=== PATIENT | female | born 1960 | race Caucasian/White ===

== ENCOUNTER 2022-03-14 10:14 | Day surgery (SDC) | payer BC ==
[2022-03-13 11:56] VITALS: BMI 30.4
[~2022-03-14 10:14] MED LIST: Bupivacaine PF 0.5% 30 ML VIAL ONE; EPINEPHrine 1 MG/ML AMP ONE
[2022-03-14] MEDS ORDERED: Fentanyl 100 MCG/2 ML VIAL ONE (11:38)
[2022-03-14] MEDS ORDERED: Ondansetron PF 4 MG/2 ML Vial ONE (11:38)
[2022-03-14] MEDS ORDERED: PROPOFOL 20 ML ONE ×2 (11:38→12:24)
[2022-03-14] MEDS ORDERED: CEFAZOLIN 2 GM VIAL ONE (11:51)
[2022-03-14] MEDS ORDERED: HYDROcodone/Acetaminophen 5/325 mg Tablet PO PRN (12:51)
[2022-03-14] MEDS ORDERED: Acetaminophen 325 MG TAB PO PRN (12:51)
== END 2022-03-14 13:50 | disposition home or self-care (01) ==
LOC: CSHSDC 10:14
PROVIDERS: ATTEND Surgery
PROC: B518ZZA Fluoroscopy of Superior Vena Cava, Guidance (ICD-10-PCS; principal; 2022-03-14)
PROC: 02HV33Z Insertion of Infusion Device into Superior Vena Cava, Percutaneous Approach (ICD-10-PCS; principal; 2022-03-14)
DX: C83.38 Diffuse large B-cell lymphoma, lymph nodes of multiple sites (principal); I10 Essential (primary) hypertension; F32.A Depression, unspecified; Z79.899 Other long term (current) drug therapy; Z98.890 Other specified postprocedural states
CPT/HCPCS: C1788; J0171; J0690; J1642; J2405; J2704; J3010; S0020